=== PATIENT | male | born 1935 | race Caucasian/White ===

== ENCOUNTER 2019-02-01 21:26 | Emergency (ER) | payer MEDICARE ==
[~2019-02-01 21:26] MED LIST: Iopamidol 370 76% 100 ML VIAL ONE
[2019-02-01 21:53] LABS: #Eosinphils 0.1 thou/uL (0.0-0.7); #Lymphocytes 1.5 thou/uL (1.20-3.40); #Neutrophils 8.9 thou/uL (1.40-6.50); %Eosinophils 0.9 % (0.0-10.0); %Lymphocytes 13.2 % (21.0-51.0); %Monocytes 8.7 % (0.0-10.0); %Neutrophils 77.2 % (42.0-75.0); Hemoglobin 13.1 g/dL (14.0-18.0); Mean Corpuscular HGB CONC 33.1 g/dL (32.0-36.0); Mean Corpuscular Hemoglobin 27.8 pg (27.0-31.0); Mean Platelet Volume 10.2 fL (7.4-10.4); Platelet Count 154 thou/uL (130-400); RBC Distribution Width 13.7 % (11.5-14.5); Red Blood Cell (RBC) Count 4.69 mill/uL (4.70-6.10); White Blood Cell (WBC) Count 11.5 thou/uL (4.8-10.8)
[2019-02-01 22:16] LABS: ALT (SGPT) 9 U/L (8-55); AST (SGOT) 10 U/L (5-34); Albumin 4.3 g/dL (3.4-4.8); Alkaline Phosphatase 60 U/L (40-150); Anion Gap 14 mmol/L (10-20); BUN (Urea Nitrogen) 16 mg/dL (8.4-25.7); Bilirubin, Total 0.8 mg/dL (0.2-1.2); Calc. Creatinine Clearance 0 mL/min (70-130); Calcium 9.7 mg/dL (7.8-10.44); Carbon Dioxide 24 mmol/L (23-31); Chloride 102 mmol/L (98-107); Estimated GFR-MDRD 83; Globulin 3.1 g/dL (2.4-3.5); Glucose 128 mg/dL (83-110); Potassium 3.5 mmol/L (3.5-5.1); Protein, Total 7.4 g/dL (5.8-8.1); Sodium 136 mmol/L (136-145)
--- NOTE | 2019-02-01 23:25 | CT ---
CT Abdomen Pelvis W Con History: Abdominal pain Comparison: None. Findings: Mild scarring lung bases. Mild inflammatory stranding along the pancreatic tail. Splenic ve in is patent. No splenic artery pseudoaneurysm. No fluid collection. Aortoiliac contour is nonaneurysmal. Multiple hepatic cysts. Hypodensity superior pole left kidney measures fluid attenuation. There is a 4 mm hypodensity inferio r pole left kidney too small to characterize on this exam although not definitively a simple cyst. 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 No dilated loops of large or small bowel. Advanced facet arthropathy lumbar spine. Focal infrarenal a bdominal aortic ectasia measuring up to 2.8 cm. Impression: 1. Uncomplicated pancreatitis of the pancreatic tail. 2. 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 3. Focal ectasia infrarenal abdominal aorta measuring up to 2.8 cm. 4. 5 mm hypodensity cortex inferior pole left kidney. Follow-up ultrasound in 6 months recommended to evaluate for growth.
[2019-02-01 23:54] LABS: Bilirubin Negative (Negative); Blood, Urine Negative (Negative); Clarity Clear (Clear); Glucose, Urine (Dipstick) Normal (Negative); Leukocyte Negative Leu/uL (Negative); Nitrite Negative (Negative); Protein, Urine (Dipstick) 10 mg/dL (Neg-Trace); Urobilinogen Normal mg/dL (Less than 2)
== END 2019-02-02 00:18 | disposition home or self-care (01) ==
LOC: ERS 21:26
DX: R10.32 Left lower quadrant pain (principal); I10 Essential (primary) hypertension; E11.9 Type 2 diabetes mellitus without complications; E78.00 Pure hypercholesterolemia, unspecified; E03.9 Hypothyroidism, unspecified
CPT/HCPCS: 36415; 74177; 80053; 81003; 83690; 85025; 96360; Q9967